=== PATIENT | male | born 1960 | race Caucasian/White ===

== ENCOUNTER 2017-02-23 11:17 | Emergency (ER) | payer SELFPAY ==
[2017-02-23 11:21] VITALS: BP 141/91
--- NOTE | 2017-02-23 12:23 | RAD ---
INDICATION: Left femoral pain COMPARISON: None TECHNIQUE: AP, lateral, and oblique views were obtained. FINDINGS: No acute bony change is seen. The hip articulates normally The soft tissues are normal. IMPRESSION: NEGATIVE PLAIN RADIOGRAPHIC EVALUATION. PLEASE REFER TO CONCURRENT CT OF THE PELVIS
--- NOTE | 2017-02-23 12:35 | RAD ---
INDICATION: Left knee injury. TECHNIQUE: 4 views of the left knee were obtained. FINDINGS: The bones are in normal alignment. No joint effusion or fracture is seen. Joint spaces appear maintained. IMPRESSION: NO EVIDENCE FOR FRACTURE.
--- NOTE | 2017-02-23 12:44 | RAD ---
INDICATION: Left hip injury. COMPARISON: Correlation is made with a prior x-ray study of the left femur of the same date. TECHNIQUE: Contiguous axial sections were obtained through the pelvis without intravenous or oral contrast. Images were reconstructed in the coronal and sagittal planes. FINDINGS: There appears to be soft tissue swelling anterior to the left proximal femur in the region of the quadriceps muscle. The bones are in normal alignment. 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 No fracture is seen. There is mild bilateral osteoarthritic change in the hips. There is a small sclerotic lesion in the posterior aspect of the right iliac bone which is likely incidental. No significant enlarged pelvic lymph nodes are seen. The visualized portion of the small bowel and colon appear nondistended. There is mild sigmoid diverticulosis. No free intraperitoneal air or fluid is seen. IMPRESSION: SOFT TISSUE SWELLING ANTERIOR TO THE PROXIMAL LEFT FEMUR, NO FRACTURE IS SEEN.
--- NOTE | 2017-02-23 12:57 | ED ---
Lower Extremity - HPI Summary HPI Summary: 56M presents with left thigh pain today. He was struck on the side of his leg with a machine. He has not been able to ambulate since. He denies any numbness or tingling. He has abrasion on left thigh. He denies any other injury or LOC. He states that he has not taken anything for pain. He states his pain is extreme. - History of Current Complaint Chief Complaint: EDExtremityLower Stated Complaint: LEFT THIGH PAIN Time Seen by Provider: 02/23/17 11:27 Pain Intensity: 8 - Allergies/Home Medications Allergies/Adverse Reactions: Allergies Allergy/AdvReac Type Severity Reaction Status Date / Time No Known Allergies Allergy Verified 02/23/17 12:14 PMH/Surg Hx/FS Hx/Imm Hx Endocrine/Hematology History: Denies: Hx Anticoagulant Therapy Cardiovascular History: Reports: Hx Hypertension - Surgical History Surgery Procedure, Year, and Place: knee Infectious Disease History: Denies: Traveled Outside the [place] in Last 30 Days - Family History Known Family History: Positive: Cardiac Disease - Social History Alcohol Use: None Substance Use Type: Reports: None Smoking Status (MU): Never Smoked Tobacco Review of Systems Negative: Fever Negative: Chest Pain Negative: Shortness Of Breath Positive: Myalgia - left thigh pain All Other Systems Reviewed And Are Negative: Yes Physical Exam Triage Information Reviewed: Yes Vital Signs On Initial Exam: Initial Vitals Temp Pulse Resp BP Pulse Ox 97.8 F 83 20 141/91 95 02/23/17 11:19 02/23/17 11:19 02/23/17 11:19 02/23/17 11:19 02/23/17 11:19 Vital Signs Reviewed: Yes Appearance: Positive: Well-Appearing Skin: Positive: Warm, Dry Head/Face: Positive: Normal Head/Face Inspection Eyes: Positive: Normal, Conjunctiva Clear ENT: Positive: Normal ENT inspection, Pharynx normal, TMs normal Respiratory/Lung Sounds: Positive: Clear to Auscultation, Breath Sounds Present , Other - nontender Cardiovascular: Positive: Normal, RRR Abdomen Description: Positive: Nontender, Soft Bowel Sounds: Positive: Present Musculoskeletal: Positive: Limited @ - left leg due to pain, Other - abrasions near left knee, tender to left thigh and knee, good pulses, capillary refill<2 secs Diagnostics - Vital Signs Vital Signs Temp Pulse Resp BP Pulse Ox 02/23/17 11:21 97.8 F 83 20 141/91 98 02/23/17 11:19 97.8 F 83 20 141/91 95 - Laboratory Lab Statement: Any lab studies that have been ordered have been reviewed, and results considered in the medical decision making process. - Radiology knee Xray Interpretation: No Acute Changes Radiology Interpretation Completed By: Radiologist femur Xray Interpretation: No Acute Changes Radiology Interpretation Completed By: Radiologist - CT pelvis CT Interpretation: Positive (See Comments) - IMPRESSION: SOFT TISSUE SWELLING ANTERIOR TO THE PROXIMAL LEFT FEMUR, NO FRACTURE IS SEEN. CT Interpretation Completed By: Radiologist Lower Extremity Course/Dx - Course Course Of Treatment: 56M presents with left thigh pain today. He was struck on the side of his leg with a machine. He has not been able to ambulate since. He denies any numbness or tingling. He has abrasion on left thigh. He denies any other injury or LOC. he is tender across left thigh, hip, and knee. full ROM of ankle. neurovascular intact. xray and CT pelvis normal just some swelling. will treat with RICE. patient understands and agrees with plan - Diagnoses Differential Diagnosis/HQI/PQRI: Positive: Fracture (Closed), Sprain, Strain Provider Diagnoses: Left leg injury Discharge - Discharge Plan Condition: Good Disposition: HOME Patient Education Materials: Contusion in Adults (ED) Forms: *Work Release Referrals: [facility] [place] [facility] REFERRAL [Outside] Additional Instructions: Take Tylenol or ibuprofen every 6 hours as needed for pain Apply ice, rest, elevate Use heat in 5 days Establish care with primary care physician Return to ED if develop any new or worsening symptoms
== END 2017-02-23 13:28 | disposition home or self-care (01) ==
LOC: ED 11:17
DX: S80.812A Abrasion, left lower leg, initial encounter (principal); M79.652 Pain in left thigh; W22.8XXA Striking against or struck by other objects, initial encounter; Y93.9 Activity, unspecified; Y92.9 Unspecified place or not applicable
CPT/HCPCS: 72192; 99282

== ENCOUNTER 2017-03-21 08:11 | Emergency (ER) | payer SELFPAY ==
[2017-03-21 08:37] VITALS: BP 159/94
--- NOTE | 2017-03-21 08:53 | ED ---
Headache - HPI Summary HPI Summary: Patient presents with intermittent SANTOS daily since involvement in a work accident February 23 which he fell and hit his head with possible LOC. He had some visual disturbances at the time and SANOTS, he was seen here in the ED and had a scan of his left leg which was also injured in the accident. He did not have a head CT at the time. He denies visual disturbances currently. SANTOS are brief, usually lasting 30 minutes, spontaneously will resolve or resolved with ibuprofen which is he taking for his leg pain. He denies confusion, N/V s/p incident. SANTOS not worst of life and usually 8/10, acute onset and does not radiate. No aura related. He has never had hx of migraines or SANTOS in the past. He was not given any precautions and states he followed up with ortho only [place]. - History Of Current Complaint Chief Complaint: EDHeadache Stated Complaint: HEADACHES Time Seen by Provider: 03/21/17 08:39 Hx Obtained From: Patient Onset/Duration: Sudden Onset Initially Headache Was: Initial Pain Scale(0-10)= - 8, Moderate Currently Pain Is: Current Pain Scale(0-10)= - 0, Moderate Timing: Intermittent, Lasting:, Minutes Character: Throbbing, Pressure Location of Headache: Diffuse Aggravating Factor: Nothing Allevating Factors: Rest, Medication Associated Signs And Symptoms: Negative - Risk Factors SAH Risk Factors: Negative Meningitis Risk Factors: Negative SDH Risk Factors: Negative Temporal Arteritis Risk Factors: Negative - Allergies/Home Medications Allergies/Adverse Reactions: Allergies Allergy/AdvReac Type Severity Reaction Status Date / Time Penicillins Allergy Rash Verified 03/21/17 08:23 PMH/Surg Hx/FS Hx/Imm Hx Previously Healthy: Yes Endocrine/Hematology History: Denies: Hx Anticoagulant Therapy Cardiovascular History: Reports: Hx Hypertension - Surgical History Surgery Procedure, Year, and Place: knee - Immunization History Hx Pertussis Vaccination: No Immunizations Up to Date: Unable to Obtain/Confirm Infectious Disease History: No Infectious Disease History: Denies: Traveled Outside the [place] in Last 30 Days - Family History Known Family History: Positive: Cardiac Disease - Social History Occupation: Employed Full-time Lives: With Family Alcohol Use: Occasionally Hx Substance Use: No Substance Use Type: Reports: None Hx Tobacco Use: No Smoking Status (MU): Never Smoked Tobacco Review of Systems Constitutional: Negative Eyes: Negative ENT: Negative Respiratory: Negative Positive: no symptoms reported, see HPI Musculoskeletal: Negative Positive: Headache Psychological: Normal All Other Systems Reviewed And Are Negative: Yes Physical Exam Triage Information Reviewed: Yes Vital Signs On Initial Exam: Initial Vitals Temp Pulse Resp BP Pulse Ox 98.2 F 60 16 169/101 98 03/21/17 08:18 03/21/17 08:18 03/21/17 08:18 03/21/17 08:18 03/21/17 08:18 Vital Signs Reviewed: Yes Appearance: Positive: Well-Appearing, Well-Nourished Skin: Positive: Warm, Skin Color Reflects Adequate Perfusion Head/Face: Positive: Normal Head/Face Inspection Eyes: Positive: EOMI, EDIE, Conjunctiva Clear Neck: Positive: Supple, Nontender, No Lymphadenopathy Respiratory/Lung Sounds: Positive: Clear to Auscultation, Breath Sounds Present Cardiovascular: Positive: Normal, RRR Musculoskeletal: Positive: Normal, Strength/ROM Intact Neurological: Positive: Sensory/Motor Intact, Alert, Oriented to Person Place, Time, Speech Normal Psychiatric: Positive: Normal AVPU Assessment: Alert - [place] Coma Scale Coma Scale Total: 15 Diagnostics - Vital Signs Vital Signs Temp Pulse Resp BP Pulse Ox 03/21/17 08:35 66 97 03/21/17 08:32 159/94 03/21/17 08:21 98.0 F 62 16 169/101 100 03/21/17 08:18 98.2 F 60 16 169/101 98 - Laboratory Lab Statement: Any lab studies that have been ordered have been reviewed, and results considered in the medical decision making process. Headache Course/Dx - Course Course Of Treatment: Patient sent to CT brain. No acute findings. Patient given referral to Dr. Dhillon if symptoms persist. Patient OK with discharge. He is given brain rest recommnedations for likely concussion and now with post- concussive symptoms. - Diagnoses Differential Diagnosis/HQI/PQRI: Migraine, Temporal Arteritis, Tension Headache Provider Diagnoses: Headache Discharge - Discharge Plan Condition: Stable Disposition: HOME Patient Education Materials: Concussion (ED) Referrals: Darius Dhillon MD [Medical Doctor] - No Primary Care Phys,NOPCP [Primary Care Provider] - Additional Instructions: Follow up with Dr. Dhillon if symptoms persist
--- NOTE | 2017-03-21 09:35 | RAD ---
Indication: Prior head injury with headaches. CT of the brain was performed without IV contrast. Ventricular structures are midline. No midline shift is noted. The extra-axial spaces are unremarkable. There is no evidence of intracranial mass or hemorrhage. No other high or low density lesions are identified. IMPRESSION: There is no evidence of intracranial mass or hemorrhage noted.
== END 2017-03-21 10:01 | disposition home or self-care (01) ==
LOC: ED 08:11
DX: R51 Headache (principal); I10 Essential (primary) hypertension; Z88.0 Allergy status to penicillin
CPT/HCPCS: 70450; 99282